=== PATIENT | female | born 1950 | race American Indian/Alaskan Native ===

== ENCOUNTER 2019-09-05 10:14 | Outpatient (CLI) | payer MEDICARE ==
--- NOTE | 2019-09-05 12:05 | Mammography Report ---
DIGITAL SCREENING MAMMOGRAM WITH CAD, 09/05/2019 INDICATION: Routine screening mammography. TECHNIQUE: Digital bilateral 2D mammography was obtained in the craniocaudal and mediolateral obliq ue projections. This examination was interpreted with the benefit of Computer-Aided Detection analysi s. COMPARISON: None available. FINDINGS: Breast Density: The breasts are almost entirely fatty. Partially circumscribed oval left upper outer focal asymmetry and a group of left inner calcification s require additional imaging. No architectural distortion of the left breast. There is no evidence of dominant mass, suspicious calcifications or architectural distortion in the right breast. IMPRESSION: Left asymmetry and calcifications requiring additional imaging. Recommend recall for left spot magnification views and left breast ultrasound if needed. Follow up recommendation: Special View: Mag Category 0: Incomplete. Needs additional imaging evaluation and/or prior mammograms for comparison. A "normal" or negative report should not discourage follow up or biopsy of a clinically significant f inding. A written summary of these findings will be mailed to the patient. The patient will be entered into a mammography reporting system which will generate a reminder letter for the patient's next appointmen t at the appropriate interval. The [employer] recommends yearly mammograms starting at age 40 and continuing as l manny as a woman is in good health. Breast MRI is recommended for women with an approximate 20-25% or greater lifetime risk of breast cancer, including women with a strong family history of breast or ova leila cancer or who have been treated for Hodgkin's disease. Signer Name: Carloz Millard MD Signed: 09/05/2019 12:01 PM Workstation Name: [id number]
== END 2019-09-05 10:15 | disposition home or self-care (01) ==
LOC: SPVWC 10:14
PROVIDERS: ATTEND Family Medicine
DX: Z12.31 Encounter for screening mammogram for malignant neoplasm of breast (principal); R92.1 Mammographic calcification found on diagnostic imaging of breast
CPT/HCPCS: 77067

== ENCOUNTER 2021-06-24 06:26 | Day surgery (SDC) | payer MEDICARE ==
[2021-06-24] MEDS ORDERED: SODIUM CHLORIDE 0.9% 500 ML 500 ML IV SCH (07:00)
[2021-06-24 07:04] LABS: Basophils % (Auto) 0.6 % (0.0-1.8); Eosinophils # (Auto) 0.3 K/mm3 (0.0-0.4); Eosinophils % (Auto) 4.4 % (0.0-4.3); Hematocrit 39.6 % (30.3-42.9); Hemoglobin 13.3 gm/dl (10.1-14.3); Lymphocytes # (Auto) 2.7 K/mm3 (1.2-5.4); Lymphocytes % (Auto) 41.9 % (13.4-35.0); Mean Corpuscular HGB Conc 34 % (30-34); Mean Corpuscular Volume 86 fl (79-97); Monocytes # (Auto) 0.7 K/mm3 (0.0-0.8); Monocytes % (Auto) 11.6 % (0.0-7.3); Platelet Count 237 K/mm3 (140-440); Red Blood Count 4.62 M/mm3 (3.65-5.03); Red Cell Distribution Width 13.9 % (13.2-15.2)
[2021-06-24] MEDS ORDERED: SODIUM CHLORIDE 0.9% 500 ML 500 ML ONE (07:05)
[2021-06-24] MEDS ORDERED: ASPIRIN EC 325 MG TAB PO ONE (07:05)
[2021-06-24 07:18] LABS: INR 0.9 (0.87-1.13)
[2021-06-24 07:19] LABS: BUN/Creatinine Ratio 16; Blood Urea Nitrogen 13 mg/dL (7-17); Calcium 9.6 mg/dL (8.4-10.2); Hemolysis Index 3
[2021-06-24] MEDS ORDERED: ASPIRIN EC 325 MG TAB PO SCH (07:30)
[2021-06-24] MEDS ORDERED: HEPARIN/NS 5000 UNIT/500ML 1,000 ML IR ONE (08:09)
[2021-06-24] MEDS ORDERED: NITROGLYCERIN SYRINGE 3 ML ONE (08:10)
[2021-06-24] MEDS: MIDAZOLAM 2 MG/2 ML INJ ONE ×2 (08:29→08:52)
[2021-06-24] MEDS: fentaNYL 100 MCG/2 ML INJ ONE ×2 (08:34→08:52)
[2021-06-24] MEDS: LIDOCAINE (2%) 20 MG/1 ML VIAL 20 ML MDV INFILTRATI ONE ×2 (08:39→09:05)
[2021-06-24] MEDS: VERAPAMIL 5 MG/2 ML INJ ONE ×2 (08:39→09:08)
[2021-06-24] MEDS: HEPARIN 10,000 UNITS/10 ML VIAL ONE ×2 (08:40→09:08)
--- NOTE | 2021-06-24 09:40 | Short Stay Summary ---
Short Stay Documentation Date of service: 06/24/21 - History H&P: obtained from office - Allergies and Medications Current Medications: Allergies No Known Allergies Allergy (Verified 06/24/21 06:47) Home Medications Medication Instructions Recorded Confirmed Last Taken Type Cetirizine HCl [ZyrTEC 10mg cap] 10 mg PO DAILY 06/24/21 06/24/21 06/23/21 History 10 mg Lisinopril/Hydrochlorothiazide 1 tab PO DAILY 06/24/21 06/24/21 06/24/21 History [Zestoretic 10-12.5 mg Tablet] 1 tab busPIRone [Buspar] 5 mg PO HS 06/24/21 06/24/21 06/23/21 History 5 mg Active Medications Hydrocodone Bitart/Acetaminophen (Hydrocodone/Acetaminophen 5-325 Mg Tab) 1 each PO Q4H PRN PRN Reason: Pain, Moderate (4-6) Aspirin (Aspirin Ec 325 Mg Tab) 325 mg PO ONCE RODDY Stop: 06/24/21 17:00 Last Admin: 06/24/21 07:11 Dose: 325 mg Documented by: Sodium Chloride (Nacl 0.9% 500 Ml) 500 mls @ 50 mls/hr IV DIRECT RODDY Stop: 06/24/21 16:59 Last Admin: 06/24/21 07:12 Dose: 50 mls/hr Documented by: Tramadol HCl (Tramadol 50 Mg Tab) 50 mg PO Q4H PRN PRN Reason: Pain, Mild (1-3) - Brief post op/procedure progress note Date of procedure: 06/24/21 Pre-op diagnosis: chest pain Post-op diagnosis: same Procedure: see report Anesthesia: local Estimated blood loss: minimal Pathology: none - Disposition Condition at discharge: Good Disposition: 01 HOME / SELF CARE / HOMELESS - Discharge Diagnoses (1) Chest pain Status: Chronic Qualifiers: Chest pain type: unspecified Qualified Code(s): R07.9 - Chest pain, unspecified (2) Hypertension Status: Chronic Qualifiers: Hypertension type: primary hypertension Qualified Code(s): I10 - Essential (primary) hypertension (3) Hyperlipemia, mixed Status: Chronic Short Stay Discharge Plan Activity: advance as tolerated Diet: regular Wound: keep clean and dry Follow up with: PRIMARY CARE, [Primary Care Provider] - 7 Days
[2021-06-24] MEDS ORDERED: HYDROcodone/ACETAMINOPHEN 5-325 MG TAB PO PRN (10:00)
[2021-06-24] MEDS ORDERED: traMADol 50 MG TAB PO PRN (10:00)
[2021-06-24 12:10] VITALS: BP 121/64
--- NOTE | 2021-06-24 12:26 | Cardiac Catherization Report ---
DATE OF SERVICE: 06/24/2021 CLINICAL INFORMATION: A 71-year-old female with intermediate left bundle branch block, obesity, hypertension, hyperlipidemia, recurrent chest pain stress test shows fixed apical defect, is here for left heart catheterization. Left heart catheterization done with moderate sedation started at 9:05, finished at 9:15. 10 minutes of moderate sedation noted. DESCRIPTION OF PROCEDURE: The procedure was done via the right radial artery, sterile technique, local anesthesia, 6 [place] radial sheath inserted. Left system engaged with JL3.5 catheter. Left main is a medium caliber vessel, is patent, bifurcates into medium caliber vessel, proximal, mid and distally becomes a small caliber vessel, less than 2 mm. Diagonal 1, small to medium caliber and patent. Circumflex medium caliber patent, going into a medium caliber OM1 that is patent. RCA is a medium to large caliber vessel and is patent, engaged with JR4 catheter. It bifurcates a small to medium caliber PDA, PLV that are patent. LV gram done in SIERRA and VALERO view shows normal LV function, LVEDP of 17 mmHg, LV is 149. Aortic is 149/66. No gradient across the aortic valve on pullback. A 5-[place]oran catheter was taken over guidewire, 6-[place] radial sheath was discontinued. Radial band applied. No hematoma. No bleeding. SUMMARY: Left main patent, LAD patent, distal LAD becomes small caliber, diagonal 1 patent, circ patent, OM1 patent, RCA patent with normal LV function. Continue risk factor modification. Discussed with the patient and the patient's family. TID: [id number] RECEIPT: [id number] RG/LICHA/ELLIOT
--- NOTE | 2021-06-25 09:56 | Electrocardiograph Report ---
[facility] Test Date: 2021-06-24 Test Time: 07:02:40 Pat Name: AMERICO GRIMM Department: Room: Gender: F Tafe Registrar: RAKESH : 1950 Requested By: CIERRA ROSARIO Order Number: [id number] Reading MD: Tai Patterson Measurements Intervals [place] Rate: 61 P: 9 NM: 186 QRS: 66 QRSD: 155 T: 3 QT: 485 QTc: 491 Interpretive Statements Sinus rhythm IVCD, consider LBBB NSSTTW'S...PRWP No previous ECG available for comparison Electronically Signed On 06-25-2021 9:56:50 EDT by Tai Patterson
== END 2021-06-24 12:45 | disposition home or self-care (01) ==
LOC: CATHLABREC 06:26
PROVIDERS: ATTEND Internal Medicine
DX: R07.9 Chest pain, unspecified (principal); I10 Essential (primary) hypertension; E66.9 Obesity, unspecified; F41.9 Anxiety disorder, unspecified; E78.2 Mixed hyperlipidemia; Z79.899 Other long term (current) drug therapy; Z98.890 Other specified postprocedural states
CPT/HCPCS: 36415; 80048; 85025; 85610; 85730; 93005; 93458; 99156; C1894; J1644; J2250; J3010; J7040; Q9967

== ENCOUNTER 2021-07-25 10:47 | Emergency (ER) | payer MEDICARE ==
[2021-07-25] MEDS ORDERED: predniSONE 20 MG TAB PO ONE (11:28)
[2021-07-25] MEDS ORDERED: ONDANSETRON 4 MG ODT TAB PO ONE (11:28)
[2021-07-25] MEDS ORDERED: IBUPROFEN 800 MG TAB PO ONE (11:28)
--- NOTE | 2021-07-25 11:45 | Emergency Department Report ---
ED General Adult HPI - General Chief complaint: Fever Stated complaint: NAUSEA/VOMITING/MOUTH DISCOMFORT Time Seen by Provider: 07/25/21 11:10 Source: patient Mode of arrival: Ambulatory Limitations: No Limitations - History of Present Illness Initial comments: Chief complaint: "I just do not like feeling this way." HPI: This is a 71-year-old female with history of hypertension hyperlipidemia who presents with generalized malaise for 1 week. She denies fever. She has fatigue. She has nausea. She denies shortness of breath. She denies cough. She denies loss of taste or smell. She does have body aches. No sick contacts directly. She was evaluated at [place] [facility] on Tuesday for PATRICIA inhibitor induced angioedema. She had lip swelling and mild throat irritation. She received an injection. She has been self treating with Benadryl. She denies syncope or difficulty with swallowing speaking. Last month patient underwent left heart catheterization. No evidence significant coronary disease according to chart review. -: Gradual, week(s) (1 week) Severity scale (0 -10): 0 Consistency: intermittent Improves with: rest Worsens with: none Associated Symptoms: other (Body aches nausea) - Related Data Home Medications Medication Instructions Recorded Confirmed Last Taken Cetirizine HCl [ZyrTEC 10mg cap] 10 mg PO DAILY 06/24/21 06/24/21 06/23/21 10 mg Lisinopril/Hydrochlorothiazide 1 tab PO DAILY 06/24/21 06/24/21 06/24/21 [Zestoretic 10-12.5 mg Tablet] 1 tab busPIRone [Buspar] 5 mg PO HS 06/24/21 06/24/21 06/23/21 5 mg Previous Rx's Medication Instructions Recorded Last Taken Type Ondansetron [Zofran Odt] 4 mg PO Q8HR PRN #10 tab.rapdis 07/25/21 Unknown Rx Allergies Allergy/AdvReac Type Severity Reaction Status Date / Time No Known Allergies Allergy Verified 06/24/21 06:47 ED Review of Systems ROS: Stated complaint: NAUSEA/VOMITING/MOUTH DISCOMFORT Other details as noted in HPI Comment: All other systems reviewed and negative Constitutional: malaise. denies: chills, fever Respiratory: denies: shortness of breath Cardiovascular: denies: chest pain Gastrointestinal: nausea. denies: abdominal pain ED Past Medical Hx - Past Medical History Previous Medical History?: Yes Hx Hypertension: Yes Hx Arthritis: No - Surgical History Past Surgical History?: Yes Hx Breast Surgery: Yes (Fibroids) - Social History Smoking Status: Never Smoker Substance Use Type: None - Medications Home Medications: Home Medications Medication Instructions Recorded Confirmed Last Taken Type Cetirizine HCl [ZyrTEC 10mg cap] 10 mg PO DAILY 06/24/21 06/24/21 06/23/21 History 10 mg Lisinopril/Hydrochlorothiazide 1 tab PO DAILY 06/24/21 06/24/21 06/24/21 History [Zestoretic 10-12.5 mg Tablet] 1 tab busPIRone [Buspar] 5 mg PO HS 06/24/21 06/24/21 06/23/21 History 5 mg Ondansetron [Zofran Odt] 4 mg PO Q8HR PRN #10 tab.rapdis 07/25/21 Unknown Rx ED Physical Exam - General Limitations: No Limitations General appearance: alert, in no apparent distress, other (Appears well. Nontoxic no acute distress) - Head Head exam: Present: atraumatic, normocephalic - Eye Eye exam: Present: normal appearance - ENT ENT exam: Present: mucous membranes moist - Neck Neck exam: Present: normal inspection - Respiratory Respiratory exam: Present: normal lung sounds bilaterally. Absent: respiratory distress, wheezes, rales, rhonchi - Cardiovascular Cardiovascular Exam: Present: regular rate, normal rhythm, normal heart sounds. Absent: systolic murmur, diastolic murmur, rubs, gallop - GI/Abdominal GI/Abdominal exam: Present: soft, normal bowel sounds - Extremities Exam Extremities exam: Present: normal inspection - Neurological Exam Neurological exam: Present: alert, oriented X3 - Psychiatric Psychiatric exam: Present: normal affect, normal mood - Skin Skin exam: Present: warm, dry, intact, normal color. Absent: rash ED Course Vital Signs 07/25/21 07/25/21 07/25/21 11:00 12:13 12:16 Temperature 98.8 F 98.1 F 98.1 F Pulse Rate 68 60 60 Respiratory 16 12 14 Rate Blood Pressure 161/59 Blood Pressure 167/83 161/59 [Left] O2 Sat by Pulse 100 100 100 Oximetry ED Medical Decision Making - Lab Data Result diagrams: 07/25/21 11:38 07/25/21 11:38 Critical care attestation.: If time is entered above; I have spent that time in minutes in the direct care of this critically ill patient, excluding procedure time. ED Disposition Clinical Impression: Allergic reaction Disposition: HOME / SELF CARE / HOMELESS Is pt being admited?: No Does the pt Need Aspirin: No Condition: Stable Prescriptions: Ondansetron [Zofran Odt] 4 mg PO Q8HR PRN #10 tab.rapdis PRN Reason: Nausea
[2021-07-25 11:59] LABS: Basophils % (Auto) 0.6 % (0.0-1.8); Eosinophils # (Auto) 0.1 K/mm3 (0.0-0.4); Eosinophils % (Auto) 2.2 % (0.0-4.3); Hematocrit 39.2 % (30.3-42.9); Hemoglobin 13.3 gm/dl (10.1-14.3); Lymphocytes # (Auto) 2.2 K/mm3 (1.2-5.4); Lymphocytes % (Auto) 35.2 % (13.4-35.0); Mean Corpuscular HGB Conc 34 % (30-34); Mean Corpuscular Volume 86 fl (79-97); Monocytes # (Auto) 0.6 K/mm3 (0.0-0.8); Monocytes % (Auto) 10.5 % (0.0-7.3); Platelet Count 256 K/mm3 (140-440); Red Blood Count 4.54 M/mm3 (3.65-5.03); Red Cell Distribution Width 14.4 % (13.2-15.2)
--- NOTE | 2021-07-25 12:02 | XRay Report ---
XR chest routine 2V INDICATION / CLINICAL INFORMATION: malaise. COMPARISON: None available. FINDINGS: SUPPORT DEVICES: None. HEART /PULMONARY VASCULATURE: No significant abnormality. LUNGS / PLEURA: No significant pulmonary or pleural abnormality. No pneumothorax. ADDITIONAL FINDINGS: No significant additional findings. IMPRESSION: 1. No acute findings. Signer Name: Manny Ruiz MD Signed: 07/25/2021 11:57 AM Workstation Name: [id number]
[2021-07-25 12:14] VITALS: BP 161/59
[2021-07-25 12:14] LABS: BUN/Creatinine Ratio 11; Blood Urea Nitrogen 11 mg/dL (7-17); Calcium 9.2 mg/dL (8.4-10.2); Hemolysis Index 8
== END 2021-07-25 13:57 | disposition home or self-care (01) ==
LOC: ED 10:47
DX: T78.40XA Allergy, unspecified, initial encounter (principal); E78.5 Hyperlipidemia, unspecified; I10 Essential (primary) hypertension
CPT/HCPCS: 36415; 71046; 80048; 85025; 99284; J7512; Q0162